=== PATIENT | male | born 1955 | race Hispanic/Latino ===

== ENCOUNTER 2017-03-17 17:43 | Emergency (ER) | payer MEDICARE ==
[2017-03-17] MEDS ORDERED: NACL 0.9% 1000 ML 1,000 ML IV ONE (18:06)
[2017-03-17 18:49] LABS: BUN/Creatinine Ratio 21.33; Calcium 8.3 mg/dL (8.4-10.2); Chloride 99.6 mmol/L (98-107)
[2017-03-17 18:53] LABS: Basophils % (Auto) 0.2 % (0.0-1.8); Eosinophils % (Auto) 2.4 % (0.0-4.3); Hematocrit 34.7 % (35.5-45.6); Hemoglobin 11.9 gm/dl (11.8-15.2); Mean Corpuscular HGB Conc 34 % (32-34); Mean Corpuscular Hemoglobin 33 pg (28-32); Mean Corpuscular Volume 97 fl (84-94); Red Blood Count 3.57 M/mm3 (3.65-5.03); White Blood Count 4.4 K/mm3 (4.5-11.0)
[2017-03-17 18:57] LABS: Platelet Count 92 K/mm3 (140-440)
[2017-03-17 19:21] LABS: Potassium 4.9 mmol/L (3.6-5.0)
[2017-03-17 20:23] VITALS: BP 126/66
[2017-03-17] MEDS ORDERED: NORCO 5/325 PO ONE (20:27)
--- NOTE | 2017-03-17 20:48 | Emergency Department Report ---
ED General Adult HPI - General Chief complaint: Alcohol Stated complaint: LOW BP Time Seen by Provider: 03/17/17 18:30 Source: patient, EMS Mode of arrival: Stretcher Limitations: Physical Limitation - History of Present Illness Initial comments: 62 y/o M presents w/ cc of hypotension. Pt currently at outside facility for alcohol detox, pt states he believes facility might have given him a double dose of his normal anti-hypertensives as after he took his meds, he noted his BP being low. Pt is otherwise asymptomatic except for chronic back pain. Pt denies fever, urinary/fecal incontiennce, abdominal pain. Severity scale (0 -10): 7 - Related Data Allergies Allergy/AdvReac Type Severity Reaction Status Date / Time No Known Allergies Allergy Unverified 03/17/17 18:03 ED Review of Systems ROS: Stated complaint: LOW BP Other details as noted in HPI Constitutional: denies: chills, fever Eyes: denies: eye pain, eye discharge, vision change ENT: denies: ear pain, throat pain Respiratory: denies: cough, shortness of breath, wheezing Cardiovascular: denies: chest pain, palpitations Endocrine: no symptoms reported Gastrointestinal: denies: abdominal pain, nausea, diarrhea Genitourinary: denies: urgency, dysuria Musculoskeletal: denies: back pain, joint swelling, arthralgia Skin: denies: rash, lesions Neurological: denies: headache, weakness, paresthesias Psychiatric: denies: anxiety, depression Hematological/Lymphatic: denies: easy bleeding, easy bruising ED Past Medical Hx - Past Medical History Previous Medical History?: Yes Hx Hypertension: Yes - Surgical History Additional Surgical History: depression - Family History Family history: no significant - Social History Smoking Status: Unknown if ever smoked Substance Use Type: Alcohol ED Physical Exam - General Limitations: Physical Limitation General appearance: alert, in no apparent distress - Head Head exam: Present: atraumatic, normocephalic - Eye Eye exam: Present: normal appearance, PERRL, EOMI Pupils: Present: normal accommodation - ENT ENT exam: Present: normal exam, mucous membranes moist - Neck Neck exam: Present: normal inspection - Respiratory Respiratory exam: Present: normal lung sounds bilaterally. Absent: respiratory distress - Cardiovascular Cardiovascular Exam: Present: regular rate, normal rhythm. Absent: systolic murmur, diastolic murmur, rubs, gallop - GI/Abdominal GI/Abdominal exam: Present: soft, normal bowel sounds. Absent: distended, tenderness, guarding, rebound - Rectal Rectal exam: Present: deferred - Extremities Exam Extremities exam: Present: normal inspection, full ROM - Back Exam Back exam: Present: normal inspection - Neurological Exam Neurological exam: Present: alert, oriented X3, CN II-XII intact, normal gait - Psychiatric Psychiatric exam: Present: normal affect, normal mood - Skin Skin exam: Present: warm, dry, intact, normal color. Absent: rash ED Course Vital Signs 03/17/17 03/17/17 03/17/17 17:45 17:46 17:48 Temperature Pulse Rate 54 L 54 L Respiratory 15 13 14 Rate Blood Pressure 80/41 Blood Pressure [Left] O2 Sat by Pulse 97 96 97 Oximetry 03/17/17 03/17/17 03/17/17 17:50 17:52 17:54 Temperature 97.7 F Pulse Rate 54 L 53 L 51 L Respiratory 17 16 16 Rate Blood Pressure 80/41 80/41 80/41 Blood Pressure 80/41 [Left] O2 Sat by Pulse 97 97 98 Oximetry 03/17/17 03/17/17 03/17/17 17:56 17:58 18:00 Temperature Pulse Rate 52 L 51 L 55 L Respiratory 18 16 13 Rate Blood Pressure 80/41 80/41 79/44 Blood Pressure [Left] O2 Sat by Pulse 98 99 99 Oximetry 03/17/17 03/17/17 03/17/17 18:01 18:02 18:04 Temperature Pulse Rate 57 L 52 L Respiratory 16 15 15 Rate Blood Pressure 82/47 82/47 Blood Pressure [Left] O2 Sat by Pulse 98 99 98 Oximetry 03/17/17 03/17/17 03/17/17 18:06 18:08 18:10 Temperature Pulse Rate 54 L 53 L 53 L Respiratory 14 16 17 Rate Blood Pressure 82/47 82/47 82/47 Blood Pressure [Left] O2 Sat by Pulse 99 99 99 Oximetry 03/17/17 03/17/17 03/17/17 18:12 18:14 18:16 Temperature Pulse Rate 52 L 51 L 49 L Respiratory 17 15 15 Rate Blood Pressure 82/47 82/47 82/47 Blood Pressure [Left] O2 Sat by Pulse 98 99 97 Oximetry 03/17/17 03/17/17 03/17/17 18:18 18:30 18:46 Temperature Pulse Rate 53 L 53 L 52 L Respiratory 16 13 17 Rate Blood Pressure 83/46 83/46 108/91 Blood Pressure 83/46 [Left] O2 Sat by Pulse 98 86 100 Oximetry 03/17/17 03/17/17 03/17/17 19:00 19:16 19:30 Temperature Pulse Rate 53 L 51 L 63 Respiratory 14 14 20 Rate Blood Pressure 83/46 106/67 106/67 Blood Pressure [Left] O2 Sat by Pulse 99 100 88 Oximetry 03/17/17 03/17/17 03/17/17 19:46 20:00 20:16 Temperature Pulse Rate 53 L 52 L 53 L Respiratory 12 17 11 L Rate Blood Pressure 106/67 106/67 126/66 Blood Pressure [Left] O2 Sat by Pulse 100 100 92 Oximetry 03/17/17 03/17/17 20:30 20:42 Temperature Pulse Rate 57 L Respiratory 14 18 Rate Blood Pressure 126/66 Blood Pressure [Left] O2 Sat by Pulse 98 Oximetry ED Medical Decision Making - Lab Data Result diagrams: 03/17/17 18:18 03/17/17 18:18 - Medical Decision Making Bedside u/s notes PVR noting empty bladder, no AAA noted noting PMD: 1.1cm, 1.3 cm. 1cm Will get basic labs to r/o anemia/arf, pt otherwise asymptomatic s/p IVF 1L NS, pt bp normalized to 120s systolic, pt remained asymptomatic. Will transfer pt back to facility and advise hold anti-hypertensives Critical care attestation.: If time is entered above; I have spent that time in minutes in the direct care of this critically ill patient, excluding procedure time. ED Disposition Clinical Impression: Hypotension Qualifiers: Hypotension type: unspecified hypotension type Qualified Code(s): I95.9 - Hypotension, unspecified Disposition: DC/TX PSY HOSP/PSY UNIT Is pt being admited?: No Does the pt Need Aspirin: No Condition: Good Instructions: Hypotension (ED) Additional Instructions: Recommending holding anti-hypertensives till evaluated by PCP. Pt to f/u with PCP immediately after discharge from facility. Pt should return if any new concerning symptoms Time of Disposition: 20:55
== END 2017-03-17 21:50 ==
LOC: ED 17:43
DX: I95.9 Hypotension, unspecified (principal)
CPT/HCPCS: 36415; 80048; 85025; 96360; 99285; J7030

== ENCOUNTER 2017-03-27 15:22 | Emergency (ER) | payer MEDICARE ==
[2017-03-27 15:42] VITALS: BP 142/80
== END 2017-03-27 19:00 | disposition left against medical advice (07) ==
LOC: ED 15:22
DX: M54.5 Low back pain (principal); M19.90 Unspecified osteoarthritis, unspecified site; I63.9 Cerebral infarction, unspecified; I10 Essential (primary) hypertension; F32.9 Major depressive disorder, single episode, unspecified; Z87.891 Personal history of nicotine dependence; Z53.21 Procedure and treatment not carried out due to patient leaving prior to being seen by health care provider

== ENCOUNTER 2017-03-27 19:50 | Emergency (ER) | payer MEDICARE ==
[2017-03-27 20:41] LABS: Basophils % (Auto) 0.5 % (0.0-1.8); Eosinophils % (Auto) 3.6 % (0.0-4.3); Hematocrit 37.3 % (35.5-45.6); Hemoglobin 12.7 gm/dl (11.8-15.2); Mean Corpuscular HGB Conc 34 % (32-34); Mean Corpuscular Hemoglobin 33 pg (28-32); Mean Corpuscular Volume 98 fl (84-94); Platelet Count 211 K/mm3 (140-440); Red Blood Count 3.82 M/mm3 (3.65-5.03); Red Cell Distribution Width 13.7 % (13.2-15.2)
[2017-03-27 20:57] LABS: Anion Gap 18 mmol/L; BUN/Creatinine Ratio 25.71; Blood Urea Nitrogen 18 mg/dL (9-20); Calcium 9.2 mg/dL (8.4-10.2); Carbon Dioxide 26 mmol/L (22-30); Chloride 97.8 mmol/L (98-107); Glucose 94 mg/dL (75-100); Potassium 4.2 mmol/L (3.6-5.0); Sodium 138 mmol/L (137-145)
[2017-03-27] MEDS ORDERED: ZOFRAN IM ONE (22:09)
[2017-03-27] MEDS ORDERED: DILAUDID IM ONE (22:09)
[2017-03-27] MEDS ORDERED: TORADOL IM ONE (22:09)
[2017-03-27] MEDS ORDERED: ZESTRIL PO ONE (22:10)
[2017-03-27] MEDS ORDERED: FLEXERIL PO ONE (22:28)
--- NOTE | 2017-03-27 22:28 | Emergency Department Report ---
ED Back Pain/Injury HPI - General Chief Complaint: Medical Clearance Stated Complaint: BACK PAIN/HIGH BP Time Seen by Provider: 03/27/17 21:42 Source: patient, old records reviewed Limitations: No Limitations - History of Present Illness Initial Comments: 62-year-old male with a past medical history of depression, CVA, hypertension, rheumatoid arthritis, and chronic back pain presents to the hospital with complaints of lower back pain. Patient is currently at [facility] continues treatment for depression. He was recently admitted to [facility] and discharged into the [facility]. Patient states that the [facility] lost his recently prescribed medication as he has not had any of his medications since Wednesday. Patient was then told to come to the ER to have his medications refilled since they cannot find his prescription. Patient takes Flexeril, lisinopril, Benadryl, Lorcet, a topical cream for his psoriasis, and Prozac. Patient's lower back pain rated a 5/10 at triage and patient also complains of generalized arthralgias secondary to arthritis. Pain worse and movement and palpation. No alleviating factors. No reports a urine/bladder incontinence or leg weakness or numbness. All inpatient [facility] patient was sitting here on the for evaluation of hypotension. Patient felt like he received a double dose of his medication. He was discharged to advise to stop his bp medication at that time upon return to [place] - Related Data Previous Rx's Medication Instructions Recorded Last Taken Type Grundy Tar [Mg217 Psoriasis] 1 applic TP BID #1 tube 03/27/17 Unknown Rx Cyclobenzaprine [Flexeril] 10 mg PO TID PRN #30 tablet 03/27/17 Unknown Rx FLUoxetine HCL [PROzac] 40 mg PO BID #60 capsule 03/27/17 Unknown Rx HYDROcodone/APAP 7.5-325 [[place] 1 each PO Q6HR PRN #20 tablet 03/27/17 Unknown Rx 7.5/325] Lisinopril [Zestril TAB] 20 mg PO QDAY #30 tablet 03/27/17 Unknown Rx Triamcinolone 0.1% [Kenalog 0.1% 1 applic TP TID #1 tube 03/27/17 Unknown Rx CREAM] diphenhydrAMINE [Benadryl CAP] 25 mg PO Q6HR PRN #30 capsule 03/27/17 Unknown Rx Allergies Allergy/AdvReac Type Severity Reaction Status Date / Time No Known Allergies Allergy Verified 03/27/17 15:34 ED Review of Systems ROS: Stated complaint: BACK PAIN/HIGH BP Other details as noted in HPI Comment: All other systems reviewed and negative Other: Constitutional: No fevers chills Eyes: No eye pain visual changes ENT: No ear pain or throat pain Neck: Denies pain Respiratory: Denies cough wheezing shortness of breath Cardiovascular: Denies chest pain, palpitations, syncope GI: Denies abdominal pain, nausea, vomiting, diarrhea : Denies dysuria Musculoskeletal: as per hpi Skin: Chronic generalized rash secondary to psoriasis Neurologic: Denies headache, numbness, weakness Psychiatric: Denies suicidal ideation, hallucinations. Positive depression ED Past Medical Hx - Past Medical History Previous Medical History?: Yes Hx Hypertension: Yes Hx CVA: Yes Hx Arthritis: Yes Hx Psychiatric Treatment: Yes (DEPRESSION) Additional medical history: CHRONIC BACK PAIN. PSORIASIS - Surgical History Past Surgical History?: Yes Additional Surgical History: CAROTID SURGERY. BACK SURGERY - Social History Smoking Status: Never Smoker Substance Use Type: None - Medications Home Medications: Home Medications Medication Instructions Recorded Confirmed Last Taken Type Grundy Tar [Mg217 Psoriasis] 1 applic TP BID #1 tube 03/27/17 Unknown Rx Cyclobenzaprine [Flexeril] 10 mg PO TID PRN #30 tablet 03/27/17 Unknown Rx FLUoxetine HCL [PROzac] 40 mg PO BID #60 capsule 03/27/17 Unknown Rx HYDROcodone/APAP 7.5-325 [[place] 1 each PO Q6HR PRN #20 tablet 03/27/17 Unknown Rx 7.5/325] Lisinopril [Zestril TAB] 20 mg PO QDAY #30 tablet 03/27/17 Unknown Rx Triamcinolone 0.1% [Kenalog 0.1% 1 applic TP TID #1 tube 03/27/17 Unknown Rx CREAM] diphenhydrAMINE [Benadryl CAP] 25 mg PO Q6HR PRN #30 capsule 03/27/17 Unknown Rx ED Physical Exam - General Limitations: No Limitations - Other Other exam information: General: No limitations, patient is alert in no acute distress Head exam: Atraumatic, normocephalic Eyes exam: Normal appearance ENT: Moist mucous membrane, normal oropharynx Neck exam: Normal inspection, full range of motion Respiratory exam: Clear to auscultation bilateral, no wheezes, rales, crackles Cardiovascular: Normal rate and rhythm, normal heart sounds Abdomen: Soft, nondistended, and nontender, with normal bowel sounds, no rebound, or guarding Extremity: Full range of motion normal inspection no deformity Back: Normal Inspection, full range of motion, tenderness to bilateral paraspinal muscles of the lower back with minimal midline tenderness Neurologic: Alert, oriented x3, cranial nerves intact, no motor or sensory deficit Psychiatric: normal affect, normal mood Skin: Generalized pink macular rash ED Course Vital Signs 03/27/17 03/27/17 03/27/17 20:05 23:00 23:10 Temperature 98.3 F Pulse Rate 64 59 L Respiratory 20 18 Rate Blood Pressure 196/80 Blood Pressure 189/94 [Right] O2 Sat by Pulse 99 Oximetry 03/27/17 23:12 Temperature Pulse Rate 59 L Respiratory 18 Rate Blood Pressure Blood Pressure 196/80 [Right] O2 Sat by Pulse Oximetry - Reevaluation(s) Reevaluation #1: 03/27/17 22:36 Dilaudid, Flexeril, Zofran, and lisinopril ordered ED Medical Decision Making - Lab Data Result diagrams: 03/27/17 20:11 03/27/17 20:11 Lab Results 03/27/17 03/27/17 Range/Units 20:11 20:11 WBC 6.0 (4.5-11.0) K/mm3 RBC 3.82 (3.65-5.03) M/mm3 Hgb 12.7 (11.8-15.2) gm/dl Hct 37.3 (35.5-45.6) % MCV 98 H (84-94) fl MCH 33 H (28-32) pg MCHC 34 (32-34) % RDW 13.7 (13.2-15.2) % Plt Count 211 (140-440) K/mm3 Lymph % (Auto) 34.7 (13.4-35.0) % [place] % (Auto) 9.5 H (0.0-7.3) % Eos % (Auto) 3.6 (0.0-4.3) % Baso % (Auto) 0.5 (0.0-1.8) % Lymph # 2.1 (1.2-5.4) K/mm3 [place] # 0.6 (0.0-0.8) K/mm3 Eos # 0.2 (0.0-0.4) K/mm3 Baso # 0.0 (0.0-0.1) K/mm3 Seg Neutrophils % 51.7 (40.0-70.0) % Seg Neutrophils # 3.1 (1.8-7.7) K/mm3 Sodium 138 (137-145) mmol/L Potassium 4.2 (3.6-5.0) mmol/L Chloride 97.8 L (98-107) mmol/L Carbon Dioxide 26 (22-30) mmol/L Anion Gap 18 mmol/L BUN 18 (9-20) mg/dL Creatinine 0.7 L (0.8-1.5) mg/dL Estimated GFR > 60 ml/min BUN/Creatinine Ratio 25.71 % Glucose 94 (75-100) mg/dL Calcium 9.2 (8.4-10.2) mg/dL - Medical Decision Making Patient be discharged with a refill and his medications with the doses that he verbally reported to me. Patient has not had his blood pressure medications at least since Wednesday or Wednesday and now presents with elevated blood pressure. I will resume all of his recently prescribed medications as requested. No doses are per his recollection since I do not have any way to verify this at this time - Differential Diagnosis chronic pain, med refill Critical Care Time: No Critical care attestation.: If time is entered above; I have spent that time in minutes in the direct care of this critically ill patient, excluding procedure time. ED Disposition Clinical Impression: Chronic back pain, Encounter for medication refill, HTN (hypertension), Depression, Arthritis, Psoriasis Disposition: DISCHARGED TO HOME OR SELFCARE Is pt being admited?: No Does the pt Need Aspirin: No Condition: Stable Instructions: Psoriasis (ED), Hypertension (ED), Chronic Back Pain (ED) Additional Instructions: I have refilled the medication base on the medication doses that you provided. In the future go to a primary care doctor or clinic for further refills any medication and treatment. Prescriptions: Grundy Tar [Mg217 Psoriasis] 1 applic TP BID #1 tube Cyclobenzaprine [Flexeril] 10 mg PO TID PRN #30 tablet PRN Reason: Muscle Spasm diphenhydrAMINE [Benadryl CAP] 25 mg PO Q6HR PRN #30 capsule PRN Reason: Itching FLUoxetine HCL [PROzac] 40 mg PO BID #60 capsule HYDROcodone/APAP 7.5-325 [[place] 7.5/325] 1 each PO Q6HR PRN #20 tablet PRN Reason: Pain Lisinopril [Zestril TAB] 20 mg PO QDAY #30 tablet Triamcinolone 0.1% [Kenalog 0.1% CREAM] 1 applic TP TID #1 tube Referrals: PRIMARY CARE, [Referring] - 3-5 Days [facility] [Provider Group] - 3-5 Days Time of Disposition: 00:49
[2017-03-28 01:45] VITALS: BP 148/67
== END 2017-03-28 01:43 | disposition home or self-care (01) ==
LOC: ED 19:50
DX: M54.5 Low back pain (principal); G89.29 Other chronic pain; I10 Essential (primary) hypertension; F32.9 Major depressive disorder, single episode, unspecified; L40.9 Psoriasis, unspecified; Z86.73 Personal history of transient ischemic attack (TIA), and cerebral infarction without residual deficits; M06.9 Rheumatoid arthritis, unspecified
CPT/HCPCS: 36415; 80048; 85025; 96372; 99283; J1170; J1885; J2405